=== PATIENT | male | born 1995 | race Caucasian/White ===

== ENCOUNTER 2017-08-17 22:50 | Emergency (ER) | payer OTHER ==
[~2017-08-17] VITALS: Ht 180.3 cm; Wt 91.9 kg
[2017-08-17 22:54] VITALS: TEMP 37; Ht 180.3 cm; Wt 91.9 kg
--- NOTE | 2017-08-17 23:19 | EMERGENCY ROOM VISIT NOTE ---
History Report prepared by Isaias: Bora Yadav Under the Supervision of: Dr. Tristin Park M.D. First contact with patient: 23:02 Chief Complaint: BACK PAIN Stated Complaint: WC BACK, LEG PAIN History of Present Illness The patient is a 21 year old male who presents to the Emergency Room with complaints of persistent back pain secondary to trauma that occurred two hours ago. He currently rates his pain a 6/10 in severity. The patient notes that he was cutting a tree on one end, while another person was cutting on another end. He notes that he tried to inform his coworker not to cut at a certain spot, though he did anyway and the tree started tumbling towards him and hit his back , before he was able to get out of the way. He denies any head injuries. He reports pain to his left elliott and right middle finger. He notes movement worsens his back pain. He denies any history of back pain. He denies any right leg pain. He denies any headache, chest pain, neck pain, shortness of breath, or urinary symptoms. He denies any bloody urine. Source of History: patient Onset: two hours ago Position: back Symptom Intensity: 6/10 Timing: other (persistent) Modifying Factors (Worsening): movement Associated Symptoms: No headache, No neck pain, No chest pain, No SOB, No urinary symptoms (denies bloody urine) Note: Notes left elliott pain and right middle finger pain. Denies any head injuries or right leg pain. Review of Systems See HPI for pertinent positives & negatives. A total of 10 systems reviewed and were otherwise negative. Past Medical & Surgical Surgical Problems: (1) History of tonsillectomy Family History Cancer Social History Smoking Status: Never Smoker Marital Status: single Housing Status: lives with family Occupation Status: unemployed Current/Historical Medications Scheduled PRN Cyclobenzaprine Hcl (Flexeril), 10 MG PO TID PRN for Muscle Spasms Allergies Coded Allergies: No Known Allergies (Unverified , 08/17/17) Physical Exam Vital Signs Date Time Temp Pulse Resp B/P (MAP) Pulse Ox O2 Delivery O2 Flow Rate FiO2 08/18/17 00:12 89 18 121/70 99 08/17/17 22:54 37.0 98 20 121/70 100 Room Air Physical Exam GENERAL: Patient is well appearing and in minimal acute distress. EYES: No scleral icterus, unremarkable pupils. ENT: Mucous membranes moist, no nasal congestion. NECK: No masses appreciated, no meningismus, trachea is midline. RESPIRATORY: No dyspnea. Clear to auscultation and equal bilaterally. No wheeze , no rhonchi. CARDIOVASCULAR: Regular rate and rhythm. No murmurs, rubs, gallops appreciated. GASTROINTESTINAL: Abdomen soft, nontender, no peritonitis. Bowel sounds positive. No masses appreciated. BACK: No midline tenderness, no CVA tenderness. Contusion/abrasion over right posterior iliac crest. Mild low lumbar tenderness to palpation. EXTREMITIES: Normal motion all extremities, no cyanosis, no edema. Abrasion over upper anterior elliott with tenderness to palpation. Mild swelling of the PIP joint of the 3rd digit on right hand. NEUROLOGIC: Alert and oriented, no acute motor or sensory deficits, no focal weakness, cranial nerves grossly intact. SKIN: No rash, no jaundice, no diaphoresis. Medical Decision & Procedures ER Provider Diagnostic Interpretation: Radiology results and stated below per my review and interpretation: Lumbar Spine XR: Three view: No fracture. No dislocation. Mild curvature to the right. No pervious for comparison. Pelvis XR: One view: No fracture. No dislocation. 3rd Finger Right Hand XR: Three view: No fracture. No dislocation. Mild soft tissue swelling. Tibia/Fibula XR: Two view: No fracture. No dislocation. Medications Administered Medications (Trade) Dose Ordered Sig/[facility] Route Start Time Stop Time Status Last Admin Dose Admin Cyclobenzaprine HCl (FLEXERIL 10MG Home Pack) 1 homepack UD ONCE PO 08/18/17 00:15 08/18/17 00:16 DC 08/18/17 00:12 1 HOMEPACK ED Course 2303: The patient was evaluated in room C8. A complete history and physical exam was performed. 0000: I reassessed the patient at this time. He is resting. I performed a bedside FAST US: findings showed no free fluid. I discussed the results and treatment plan with the patient.I discussed no driving after Flexeril. I answered all pertaining questions that he had. He expressed understanding and verbalized agreement. The patient will be discharged home. Medical Decision Differential: Intracranial Injury, Cervical Injury, Intrathoracic/Abdominal Injury, Neurologic Injuries, Fractures/Dislocations, Lacerations, Tetanus Status , amongst other pathologies entertained. 21 yr old male arrives for evaluation s/p trauma from being hit by a tree. TTP over low right back and iliac crest, left anterior elliott and middle finger right hand. No fractures appreciated on imaging. No evidence compartment syndromes. No evidence intraabdominal injury nor neuro injuries. Pulses intact. US FAST negative for intraabdominal free fluid and no blood in urine. He has no evidence nor symptom of head injury, cervical injury, nor chest trauma. Tetanus vaccine within last 5 yrs per patient/mother. Patient looks well and declines pain medications in ED but willing to have muscle relaxer as needed. Discussed symptoms requiring RTED. Head Trauma GCS Score: 15 Medication Reconcilliation Current Medication List: was personally reviewed by me Blood Pressure Screening Patient's blood pressure: Normal blood pressure Impression Primary Impression: Hit by Tree Additional Impressions: Back contusion Contusion of left tibia Finger contusion Scribe Attestation The scribe's documentation has been prepared under my direction and personally reviewed by me in its entirety. I confirm that the note above accurately reflects all work, treatment, procedures, and medical decision making performed by me. Departure Information Dispostion Home / Self-Care Prescriptions Cyclobenzaprine Hcl (FLEXERIL) 10 Mg Tab 10 MG PO TID Y for Muscle Spasms, #15 TAB Prov: Tristin Park M.D. 08/18/17 Referrals No Doctor, Assigned (PCP) Forms HOME CARE DOCUMENTATION FORM, IMPORTANT VISIT INFORMATION Patient Instructions ED Contusion Back, [facility] Health Problem Qualifiers
[2017-08-18] MEDS ORDERED: CYCL10TA6 PO (00:05)
[2017-08-18 00:12] VITALS: BP 121/70; PULSE 89; O2SAT 99
[2017-08-18] MEDS ORDERED: FLEXERIL HOME PACK 10 MG VIAL PO ONE (00:15)
--- NOTE | 2017-08-18 06:42 | DIAGNOSTIC IMAGING REPORT ---
PELVIS 1 OR 2 VIEW ROUTINE CLINICAL HISTORY: Trauma. Right iliac pain. COMPARISON STUDY: No previous studies for comparison. FINDINGS: No fractures are visualized. There is no SI joint diastases. There is no symphysis diastases. IMPRESSION: No fractures identified on conventional radiographic imaging Electronically signed by: Familia Malone M.D. 08/18/2017 6:41 AM Dictated Date/Time: 08/18/2017 6:40 AM
--- NOTE | 2017-08-18 06:43 | DIAGNOSTIC IMAGING REPORT ---
LUMBAR SPINE 2 OR 3 VIEWS CLINICAL HISTORY: Low back pain status post trauma COMPARISON STUDY: No previous studies for comparison. FINDINGS: No fractures or subluxations are visualized. IMPRESSION: No fractures identified. Electronically signed by: Familia Malone M.D. 08/18/2017 6:42 AM Dictated Date/Time: 08/18/2017 6:41 AM
--- NOTE | 2017-08-18 06:44 | DIAGNOSTIC IMAGING REPORT ---
L TIBIA/FIBULA 2 VIEWS ROUTINE CLINICAL HISTORY: Pain status post trauma COMPARISON: None. DISCUSSION: No fractures or subluxations are visualized. IMPRESSION: No fractures identified. Electronically signed by: Familia Malone M.D. 08/18/2017 6:42 AM Dictated Date/Time: 08/18/2017 6:42 AM
--- NOTE | 2017-08-18 06:46 | DIAGNOSTIC IMAGING REPORT ---
RIGHT THIRD/MIDDLE FINGER CLINICAL HISTORY: Pain status post trauma COMPARISON: None DISCUSSION: No fractures or dislocations are visualized. IMPRESSION: No fractures or dislocations identified. Electronically signed by: Familia Malone M.D. 08/18/2017 6:45 AM Dictated Date/Time: 08/18/2017 6:44 AM
== END 2017-08-18 00:14 | disposition home or self-care (01) ==
LOC: C.EDB 22:52 → C.EDC 08-18 00:14
DX: S30.0XXA Contusion of lower back and pelvis, initial encounter (principal); S30.810A Abrasion of lower back and pelvis, initial encounter; S80.812A Abrasion, left lower leg, initial encounter; S80.12XA Contusion of left lower leg, initial encounter; S60.031A Contusion of right middle finger without damage to nail, initial encounter; W22.8XXA Striking against or struck by other objects, initial encounter; Y93.89 Activity, other specified; Y99.0 Civilian activity done for income or pay